=== PATIENT | male | born 1945 | race Caucasian/White ===

== ENCOUNTER 2024-02-10 13:17 | Inpatient (IN) | payer MEDICARE, SELFPAY ==
[2024-02-09] VITALS (10 sets, daily range): BP systolic 125–171; BP diastolic 66–86; BMI 27.1; BMI 26.0
[2024-02-09 11:11] LABS: % Basophils 0.4 % (0-2); % Eosinophils 1.6 % (0-6); % Immature Granulocytes 0.4 % (0-0.5); % Neutrophils 61.6 % (42.2-75.2); Absolute Eosinophils 0.2 10^3/uL (0-0.7); Absolute Lymphocytes 2.9 10^3/uL (1.2-3.4); Absolute Monocytes 0.7 10^3/uL (0.1-0.6); Absolute Neutrophils 6.2 10^3/uL (1.4-6.5); Hematocrit 42.4 % (39.0-52.0); Hemoglobin 14.7 g/dL (13.0-18.0); Mean Corp Hgb Conc. 34.7 g/dL (33.0-37.0); Mean Corpuscular Hgb 32.6 pg (27.0-31.0); Mean Platelet Volume 10.3 fL (7.4-10.4); Nucleated Red Blood Cells % 0 % (-); Platelet Count 229 10^3/uL (130-400); Red Blood Cell Count 4.51 10^6/uL (4.70-6.10); Red Cell Dist. Width 13.2 % (11.5-14.5); White Blood Cell Count 10.1 10^3/uL (4.8-10.8)
[2024-02-09 11:37] LABS: Troponin I < 0.012 ng/ml
[2024-02-09 11:40] LABS: ALT (SGPT) 24 U/L (0-50); AST (SGOT) 29 U/L (17-59); Albumin 4.5 g/dl (3.5-5.0); Alkaline Phosphatase 85 U/L (38-126); Blood Urea Nitrogen 28 mg/dl (9-20); Calcium 9.4 mg/dl (8.4-10.2); Carbon Dioxide 27 mmol/L (22-30); Chloride 104 mmol/L (98-107); Estimated Creatinine Clearance 29 ml/min; Glucose 159 mg/dl (70-99); Potassium 3.9 mmol/L (3.5-5.1); Sodium 140 mmol/L (135-145); Total Bilirubin 1.6 mg/dl (0.2-1.3); Total Protein 7.1 g/dl (6.3-8.2); eGFR 41.01
--- NOTE | 2024-02-09 12:37 | ED.CVA ---
History of Present Illness
General
Chief Complaint: CVA/TIA Symptoms
Source: patient and spouse
Exam Limitations: none
Time Seen by Provider: 02/09/24 11:33
Nursing documentation reviewed up to this point in time: agreed with
Onset of Stroke Symptoms
Onset of symptoms known: Yes
Date of onset of symptoms: 02/09/24
History of Present Illness
History of Present Illness:
78-year-old male with a past medical history of hypertension, hyperlipidemia, CKD who presents to the emergency department with his for evaluation after a speech disturbance. Patient reports onset of symptoms around 9:45 AM and they lasted for
about 10 minutes and have completely resolved. He reports that they had just returned from breakfast and he was sitting in his armchair. His says that he started to look at his hands and appeared to be confused. She says that he started
speaking 'gibberish'--she says that he was saying words but they did not make sense. She says that he did not seem to be slurring his speech. Apparently he got up to walk around and felt dizzy. EMS called to bring her to the hospital. Per EMS
his Accu-Chek was normal. Patient says that his symptoms have resolved and he now feels well� agrees that he appears to be at baseline. He says he never had any change in his vision. He says he did not have headache. He says he did not have
any weakness or numbness in his extremities. He has not had similar symptoms in the past. He denies any history of A-fib, is not on any blood thinners. He does have a history of blood pressure which is typically difficult to control he says--he
takes 3 medications for his blood pressure
Review of Systems
Review of Systems
All Other Systems: ROS reviewed and negative except as documented in HPI and ROS
Constitutional: Denies fever or chills
Respiratory: Denies trouble breathing
Cardiac: Denies chest pain
ABD/GI: Denies abdominal pain, nausea or vomiting
Neurological: Reports other (Speech disturbance); Denies dizzy, headache, weakness or numbness
Phy Exam
Physical Exam
Physical Exam:
General: Awake, alert, oriented x3; no acute distress
Head: Normocephalic, atraumatic
Eyes: Conjunctiva normal, EOMI, pupils equal round and reactive to light bilaterally, visual hays are intact
Throat: Airway intact, handling secretions
Neck: Trachea midline, supple without meningismus
Lungs: Clear to auscultation bilaterally, no wheezing, rales, rhonchi
Heart: Regular rate and rhythm, no murmurs, gallops, or rubs
Abd: Soft, non distended, nontender
Neuro: Cranial nerves intact 2 through 12, speech is fluid with no dysarthria or aphasia, no limb ataxia, motor and sensory function is intact proximally and distally upper and lower extremities
Skin: no rash
Extremities: No edema in extremities, equal pulses in all extremities
Scores
NIH Stroke Score
Level of Consciousness: 0 - Alert
LOC Questions: 0-Answers both correctly
LOC Commands: 0-Performs both correctly
Best Horizontal Gaze: 0-Normal
Visual Ahys: 0=Normal, no visual loss
Facial Palsy: 0=Normal, symmetrical
Motor - Right Arm: 0=No drift 10 seconds
Motor - Left Arm: 0=No drift 10 seconds
Motor - Right Le-No drift 5 seconds
Motor - Left Le-No drift 5 seconds
Limb Ataxia: 0-Absent
Sensation: 0-Normal
Best Language: 0-No aphasia
Dysarthria: 0-Normal
Extinction and Inattention: 0-No abnormality
Total Score:: 0
Heart Failure Risk
Heart Failure Risk Score: Not Applicable
Heart Score for Chest Pain Patients
STEMI patient?: Not applicable
Withdrawal Assessment of Alcohol
Withdrawal Assessment Completed?: Not applicable
Course
Orders/Labs/Results
Orders:
Orders
02/09/24 10:59
Electrocardiogram (*1) Urgent
Reason for Study: TIA/Stroke
02/09/24 11:00
EKG- Treatment ONCE
02/09/24 11:01
Complete Blood Count/With Diff Urgent
Comprehensive Metabolic Panel Urgent
Troponin I Urgent
02/09/24 11:44
CT Head W/o Iv Contrast Urgent
Comment:
Reason For Exam: dysarthria
02/09/24 11:56
NEUROLOGY CONSULT Urgent
Consulting Provider: Cayden Leos
Was physician already notified: Yes
Abnormal Lab Results
02/09/24
11:01
RBC 4.51 L 10^6/uL
(4.70-6.10)
MCH 32.6 H pg
(27.0-31.0)
Absolute Monos (auto) 0.7 H 10^3/uL
(0.1-0.6)
BUN 28 H mg/dl
(9-20)
Creatinine 1.7 H mg/dL
(0.7-1.3)
Glucose 159 H mg/dl
(70-99)
Total Bilirubin 1.6 H mg/dl
(0.2-1.3)
02/09/24 11:01
02/09/24 11:01
Vital Signs
Initial and Last Documented VS:
Initial Vital Signs
BP
149/68
02/09/24 10:58
Last Documented Vital Signs
Temp Pulse Resp BP Pulse Ox
36.8 C 77 21 137/76 97
02/09/24 11:03 02/09/24 11:15 02/09/24 11:15 02/09/24 11:03 02/09/24 11:17
MDM/Problems Addressed
Differential Diagnosis Includes:
TIA/CVA, seizure, complex migraine, polypharmacy
MDM/Problems Addressed:
78-year-old male presents for evaluation after an episode of speech disturbance that lasted about 10 minutes and has completely resolved. Normotensive on my assessment, rest of vitals normal as well. Physical exam is as above. With no current
physical complaints or deficits on exam, no stroke alert was called but will send for a CT head. Clinical concern is for TIA. Will check labs including a CBC and a CMP. Will check an EKG. Discussed case with neurology to evaluate. Reassess
after the above.
CT head negative for any acute pathology but does show multiple old infarcts. CBC unremarkable, CMP shows creatinine of 1.7�no baseline available for comparison. Neurology at bedside recommended admission to the hospital service will plan for
MRI/MRA. Case discussed with hospitalist for admission. Will dose with aspirin here.
Chronic conditions affecting care:
Hypertension, hyperlipidemia�higher risk for stroke
*Radiology
Radiology exam reviewed: radiology read reviewed
*Pulse Oximetry
Patient hypoxic: no
*EKG
Interpreted by ED Provider?: Yes
Heart Rate: 69
Rate: normal
Rhythm: sinus
Aspen: normal axis
Interval: normal interval
QRS Pattern: normal QRS
Ischemia: no ischemia
*Critical Care Note
Total Time (30-74mins, 75-104mins- exclusive of procedures): Not Applicable
Data Reviewed
Source: patient and spouse
Patient Management
Discussion with other providers: Hospitalist (Discussed with hospitalist) and Cavity Pump Operator (Discussed with neurology)
Escalation/DeEscalation of care consider admission/obs:
Admission indicated
ED Attending Note
-
Portions of this chart may have been created with voice recognition software.� Occasional wrong word or��sound alike� substitutions may have occurred due to the inherent limitations of voice recognition software.
Discharge Plan
Departure
Patient Disposition: Admit
Date of Disposition: 02/09/24
Time of Disposition: 12:43
Admit to doctor: Viji
Presentation/result/management discussed w/ accepting MD/DO: Hospitalist
Discharge Problem:
TIA (transient ischemic attack)
Prescriptions:
No Action
atorvastatin 40 mg Tablet
40 mg PO QPM
hydralazine 25 mg Tablet
25 mg PO QPM
Patient Comments:
02/09/2024, prescribed for pt. to take 1 tab TID but pt. takes 1 tab QPM per pt.; last filled on 08/19/2023 for a 90-day supply.
amlodipine 10 mg Tablet
10 mg PO QPM
omeprazole 20 mg Capsule,Delayed Release(Dr/Ec)
20 mg PO NOON
hydrochlorothiazide 25 mg Tablet
25 mg PO NOON
lisinopril 40 mg Tablet
40 mg PO QPM
atenolol 50 mg Tablet
50 mg PO QPM
Referrals:
Jaiden Barton MD [Family Provider] -
Interventions
Interventions:
*Risk Screen - Suicide Last Done: 02/09/24 11:10
*General Assessment Last Done: 02/09/24 11:06
*Neglect/Abuse Screening Last Done: 02/09/24 11:10
ED- Fall Risk Assessment Last Done: 02/09/24 11:10
*ED COVID-19 Vaccine History Last Done: 02/09/24 11:06
ED- Pulmonary Assessment Last Done: 02/09/24 11:17
ED- Neurological Assessment Last Done: 02/09/24 11:11
ED- Cardiac Assessment Last Done: 02/09/24 11:17
ED Swallowing Screen Last Done: 02/09/24 11:17
Discharge Date and Time
Print Language: [place]
[2024-02-09] MEDS: ASPIRIN 325 MG PO (12:49)
--- NOTE | 2024-02-09 12:56 | HPS.HSE ---
Addendum entered and electronically signed by Alex Gonzalez MD 02/09/24 14:31:
Elevated creatinine, suspect CKD
Bladder scan as needed, continue to monitor
Ua
Addendum entered and electronically signed by Alex Gonzalez MD 02/09/24 14:09:
I saw and examined the patient.
The OCEANOGRAPHER GEOLOGICAL or PA's note was reviewed and I agree with the note.
Comment: 78-year-old male with history of hypertension, hyperlipidemia, GERD came to the hospital with dysarthria and aphasia. Witnessed this morning by spouse. Patient reports compliant with all his medications. Denies any chest pain, shortness
of breath. Denies any headache. CT with multiple old lacunar infarcts. Patient family not aware of any previous stroke. Check MRI/MRA. Check echo. Neurology consulted. Per neurology treat blood pressure if higher than 150/90. Will hold p.o.
BP meds at this time. Hydralazine as needed. Speech, PT/OT. Check lipid profile, A1c. Full dose aspirin given. Start baby aspirin starting tomorrow. echo. monitor on tele
General: Well Developed, Well Nourished and No Apparent Distress
HEENT: NormoCephalic, Moist mucous membranes and Atraumatic
Respiratory: Clear
Cardiac: S1/S2 and Regular Rhythm; No Murmur or Rub
GI: Soft, Non Tender, Non Distended and Normal Bowel Sounds; No Organomegaly
Rectal: Deferred by Provider
Musculoskeletal: No Clubbing, No Cyanosis and No Edema
Skin: No Rash
Neuro: Nonfocal/grossly intact
I spent a total of 76 minutes with the patient or on the floor. More than 50% of this time involved counseling and coordination of care.
Original Note:
Family Physician
-
Family Physician: Jaiden Barton
Chief Complaint
-
Confusion
History of Present Illness
78-year-old male with a past medical history of hypertension, hyperlipidemia, CKD who presents to the emergency department with his for difficulty finding words after having breakfast. he was not making sense to his . he seemed confused.
His says that he started to look at his hands and appeared to be confused. Apparently he got up to walk around and felt dizzy. EMS called to bring her to the hospital. denied RHOADES or syncopal episode. denied fever, chills, chest pain, sob.
denied abdominal pain, n,v,d. denied dysuria or hematuria.
#CT head with no acute findings. old lacunar infracts.
Medical History
Past Medical History
Past Medical History: Reports Other
Additional Past Medical History:
Hypertension
Hyperlipidemia
GERD
Past Surgical History: Reports None
Additional Past Surgical History:
hernia repair
Social History
Tobacco: Other (occasional cigars)
Alcohol: Daily (2 beers daily)
Personal:
Living: With Family
Employment: Retired
Family History
Family History: Not pertinent
Allergies / Home Medications
Allergies reflects when Allergies were last updated in [employer].
Home Medications with original date entered in [employer]
Allergy/Medication List:
Allergies
Allergy/AdvReac Type Severity Reaction Status Date / Time
No Known Allergies Allergy Unverified 02/09/24 10:58
Home Medications
amlodipine 10 mg tablet 10 mg PO QPM 02/09/24
atenolol 50 mg tablet 50 mg PO QPM 02/09/24
atorvastatin 40 mg tablet 40 mg PO QPM 02/09/24
hydralazine 25 mg tablet 25 mg PO QPM 02/09/24
hydrochlorothiazide 25 mg tablet 25 mg PO NOON 02/09/24
lisinopril 40 mg tablet 40 mg PO QPM 02/09/24
omeprazole 20 mg capsule,delayed release 20 mg PO NOON 02/09/24
Review of Systems
-
Constitutional: Reports No Symptoms
EENT: Reports No Symptoms
Respiratory: Reports No Symptoms
Cardiac: Reports No Symptoms
Abdomen/GI: Reports No Symptoms
: Reports No Symptoms
Musculoskeletal: Reports No Symptoms
Skin: Reports No Symptoms
Neurological: Reports Other (finding words, confusion)
Endocrine: Reports No Symptoms
Hematologic/Lymphatic: Reports No Symptoms
Psych: Reports No Symptoms
Physical Exam
Vital Signs
Vital Signs
Temp Pulse Resp BP Pulse Ox
98.2 F 65 30 137/76 95
02/09/24 11:03 02/09/24 12:51 02/09/24 12:51 02/09/24 11:03 02/09/24 12:51
Physical Exam
General: Well Developed, Well Nourished and No Apparent Distress
HEENT: NormoCephalic, Moist mucous membranes and Atraumatic
Respiratory: Clear
Cardiac: S1/S2 and Regular Rhythm; No Murmur or Rub
GI: Soft, Non Tender, Non Distended and Normal Bowel Sounds; No Organomegaly
Rectal: Deferred by Provider
Musculoskeletal: No Clubbing, No Cyanosis and No Edema
Skin: No Rash
Neuro: Nonfocal/grossly intact
Laboratory Results
-
02/09/24 11:01
02/09/24 11:01
Laboratory Results
Total Bilirubin 1.6 mg/dl (0.2-1.3) H 02/09/24 11:01
AST 29 U/L (17-59) 02/09/24 11:01
ALT 24 U/L (0-50) 02/09/24 11:01
Alkaline Phosphatase 85 U/L (38-126) 02/09/24 11:01
Troponin I < 0.012 ng/ml 02/09/24 11:01
Data Reviewed
-
CT Scan: Report Reviewed by me
Lab Data: Labs Reviewed by me
Impression/Plan
-
# Expressive aphasia rule out acute CVA
-CT head There are no acute intracranial abnormalities.There is old 1.5 cm lacunar infarct involving the head of the caudate, anterior limb of the internal capsule and anterior aspect of the lentiform nucleus on the left There is 3 cm left lateral
parietal infarct with encephalomalacia. There is old 2 cm left parietal occipital infarct with encephalomalacia
-EKG with noted normal sinus rhythm with sinus arrhythmia
-Aspirin, statin
-Obtain MRI/MRA
-PT/OT consult
-obtain a1c,lipid profile
-obtain ECHO
-Neurology consult
#CKD likely from HTN
-Creatinine 1.7
-trend cr
# Essential hypertension
-hold Norvasc, atenolol, hydralazine, hctz
-allower permissive htn goal [id number][ 90
-hydralazine 5mg prn for if SBP>155,DBP>95
# GERD
-PPI continued
# DVT prophylaxis
-SCD
# CODE STATUS
-Full code
[2024-02-09] MEDS: APRESOLINE 5 MG IV ×2 (13:44→20:36)
--- NOTE | 2024-02-09 14:09 | W.PN.UPDATE ---
Update Note
Progress Note Update
For billing purposes only
--- NOTE | 2024-02-09 15:59 | CON.NEURO4 ---
Consultation - Neurology 4
-
CONSULTING PHYSICIAN: Cayden Leos MD
REFERRING PHYSICIAN: Hospitalist
DICTATED BY:
DATE/TIME OF REQUEST: February 09, 2024
DATE/TIME OF CONSULTATION: February 09, 2020 1000 AM
Reason for Consultation: Speech impediment
History of Present Illness:
This is a 78 year old right handed male who has presented to the hospital with chief complaint speech impediment. He gives a past medical history of hypertension, hyperlipidemia, CKD who presents to the emergency department for word finding
difficulty. As per his he was in his usual state of health upon waking up. He went out for breakfast. Upon returning home he was confused and disoriented and his speech was slurred
he was not making sense to his . He kept on grasping his hands and mumbling. Apparently he got up to walk around and felt dizzy. His called EMS who brought him to the emergency room. On arrival he was asymptomatic and had no speech
deficits. He has no motor or sensory deficits either . He denies headache dizziness double vision blurring of vision tingling numbness of the face or extremities
No loss conscious no seizures . No history of falls or head injuries
He is not on antiplatelet medications at home. He has not taken his blood pressure medications this morning
Past Medical History: Hypertension
Surgical History: Hernia repair
Family History: Noncontributory
Social History: lives at home with his smokes cigars
Allergies: No known drug allergies
Home Medications: Norvasc 10 mg atenolol 50 mg Lipitor 40 mg hydralazine 25 mg hydrochlorothiazide 25 mg lisinopril 40 mg and Prozac 20 mg
Review of Symptoms:
Patient denies any fever, headache, chest pain, shortness of breath, GI or symptoms.
�Per the HPI.�All systems are reviewed negative except above.
�
Vital Signs:
The patient has a blood pressure of ( ) , heart rate ( ) , temperature ( ) , respiratory rate ( ) and a pulse ox of ( ) on
(room air / oxygen by nasal cannula / ventilator).
Physical Exam:
The patient is afebrile, heart sounds S1 and S2 are (regular / irregular), and chest is clear to auscultation bilaterally.
NIH Stroke Scale (if applicable):0
Neurologic Examination:
The patient is awake, alert and oriented x 3. (He/She) is able to follow commands and answer questions appropriately. There is no aphasia or dysarthria. On cranial nerve assessment, pupils are 3 mm bilateral, round and reactive to light and
accommodation. Visual hays are full. Extraocular movements are intact. Facial sensations are intact and bilaterally symmetrical, there is no facial asymmetry. Hearing is intact bilaterally to normal conversation volume. Tongue palate and uvula
are midline. Sternocleidomastoid strengths are full bilaterally. Motor strengths are 5/5 bilateral upper and lower extremities on medical research Lime scale. There is no drift or involuntary movement noted. Deep tendon reflexes are 2+ bilateral
upper and lower extremities and Babinski is absent bilaterally. Sensations of pain, touch, temperature and vibration are intact and bilaterally symmetrical. There was no extinction noted on double simultaneous stimulation. Coordination is intact by
finger to nose bilaterally.
Lab Results:
Neuro Imaging: CT head
1). There are no acute intracranial abnormalities
2).There is old 1.5 cm lacunar infarct involving the head of the caudate, anterior limb of the internal capsule and anterior aspect of the lentiform nucleus on the left
3). There is 3 cm left lateral HEATING AND VENTILATION ENGINEER lacunar infarct with encephalomalacia
4). There is old 2 cm left parietal occipital infarct with encephalomalacia
Impression:
Mr. KATHRYN SOW is a 78 year old M who has presented to the hospital with complaints of aphasia prior to admission.
Recommendations:
1. Ecasa 325 mg once followed by aspirin 81 mg
2. Permissive HTN
3. Speech therapy
4. MRI/MRA head
5. Lipitor 40mg
Discussed patient care with:
Total Time Spent with Patient (in minutes): 30
Vital Signs and Labs
-
Vital Signs and Labs:
Vital Signs
Temp Pulse Resp BP Pulse Ox
36.7 C 66 18 168/81 100
02/09/24 15:45 02/09/24 15:45 02/09/24 15:45 02/09/24 15:45 02/09/24 15:45
Lab Results
02/09/24 11:01
02/09/24 11:01
Sodium 140 mmol/L (135-145) 02/09/24 11:01
Potassium 3.9 mmol/L (3.5-5.1) 02/09/24 11:01
BUN 28 mg/dl (9-20) H 02/09/24 11:01
Glucose 159 mg/dl (70-99) H 02/09/24 11:01
Calcium 9.4 mg/dl (8.4-10.2) 02/09/24 11:01
[2024-02-09 16:04] LABS: Urine Albumin Negative (Neg - Trace); Urine Bilirubin Negative (Negative); Urine Character Clear (Clear); Urine Color Yellow; Urine Glucose Negative (Negative); Urine Ketone Negative (Negative); Urine Leukocyte Negative (Negative); Urine Nitrite Negative (Negative); Urine Occult Blood Negative (Negative); Urine Specific Gravity 1.005 (<1.030); Urine Urobilinogen Negative (Neg - 1+)
[2024-02-09] MEDS: LIPITOR 40 MG PO (17:45)
[2024-02-10 03:25] VITALS: BP 152/88
[2024-02-10 06:57] LABS: Hematocrit 41.6 % (39.0-52.0); Hemoglobin 14.4 g/dL (13.0-18.0); Mean Corp Hgb Conc. 34.6 g/dL (33.0-37.0); Mean Corpuscular Hgb 32.7 pg (27.0-31.0); Mean Corpuscular Volume 94.5 fL (80.0-94.0); Mean Platelet Volume 10.4 fL (7.4-10.4); Platelet Count 191 10^3/uL (130-400); Red Cell Dist. Width 13.2 % (11.5-14.5); White Blood Cell Count 8.8 10^3/uL (4.8-10.8)
[2024-02-10 07:24] LABS: Blood Urea Nitrogen 22 mg/dl (9-20); Calcium 9.3 mg/dl (8.4-10.2); Carbon Dioxide 25 mmol/L (22-30); Chloride 109 mmol/L (98-107); Estimated Creatinine Clearance 38 ml/min; Glucose 109 mg/dl (70-99); HDL Cholesterol 36 mg/dl; LDL Cholesterol, Calculated 77 mg/dl; Potassium 4.1 mmol/L (3.5-5.1); Sodium 141 mmol/L (135-145); Total Cholesterol 132 mg/dl (50-199); Triglyceride 99 mg/dl (10-149); Very Low Density Lipoprotein 19 mg/dl (0-30); eGFR 56.58
[2024-02-10 07:45] VITALS: BP 146/84
[2024-02-10] MEDS: LOW STRENGTH ASPIRIN 81 MG PO (08:19)
--- NOTE | 2024-02-10 10:26 | W.PN.HOSP.TC ---
Addendum entered and electronically signed by Alex Gonzalez MD 02/10/24 16:08:
Needs better blood pressure control. Will hold HCTZ, hydralazine. Make amlodipine in the morning. Continue atenolol, lisinopril. Unsure why he needs 5 meds. Per patient and spouse, patient has been changing his medication times on his own.
Advised him to see vacuum bottle assembler for BP if BP meds is not controlled.
Addendum entered and electronically signed by Alex Gonzalez MD 02/10/24 10:37:
Per neurology, goal is now normotension. Restart home meds
Original Note:
Today's Communication/Plan
-
Monitor vital signs closely plan
PT/OT, speech
MRI/MRA
Echo
Neurology following
Goal blood pressure normotension then will restart some of the home medications
Assessment / Plan
Assessment / Plan
General: Well Developed, Well Nourished and No Apparent Distress
HEENT: NormoCephalic, Moist mucous membranes and Atraumatic
Respiratory: Clear
Cardiac: S1/S2 and Regular Rhythm; No Murmur or Rub
GI: Soft, Non Tender, Non Distended and Normal Bowel Sounds; No Organomegaly
Rectal: Deferred by Provider
Musculoskeletal: No Clubbing, No Cyanosis and No Edema
Skin: No Rash
Neuro: Nonfocal/grossly intact
Expressive aphasia rule out acute CVA
-CT head There are no acute intracranial abnormalities.There is old 1.5 cm lacunar infarct involving the head of the caudate, anterior limb of the internal capsule and anterior aspect of the lentiform nucleus on the left There is 3 cm left lateral
parietal infarct with encephalomalacia. There is old 2 cm left parietal occipital infarct with encephalomalacia
-EKG with noted normal sinus rhythm with sinus arrhythmia
-Aspirin, statin
-Obtain MRI/MRA
-PT/OT consult
-obtain a1c pending, LDL 77
Echo noted
-Neurology follow
Monitor on telemetry
# Renal insufficiency, suspect CKD likely from HTN
Continue to monitor creatinine, 1.3 today. On admission was 1.7
# Essential hypertension
-hold Norvasc, atenolol, hydralazine, hctz
-allow permissive htn until wants by neurology; if goal normotension today then will restart home meds slowly
# GERD
-PPI continued
# DVT prophylaxis
-SCD;heparin
# CODE STATUS
-Full code
Anticipated Discharge: Within 24 hours
Subjective/Interval History
-
Date of Service: February 10, 2024
denies pain
Objective Data
-
Labs:
Laboratory Results
02/10/24
06:26
WBC 8.8
Hgb 14.4
Hct 41.6
Plt Count 191
Sodium 141
Potassium 4.1
Chloride 109 H
Carbon Dioxide 25
BUN 22 H
Creatinine 1.3
Glucose 109 H
Calcium 9.3
Vital Signs:
Vital Signs
Temp Pulse Resp BP Pulse Ox
98.2 F 65 14 146/84 96
02/10/24 07:45 02/10/24 07:45 02/10/24 07:45 02/10/24 07:45 02/10/24 07:45
I&O
02/09/24 02/10/24 02/11/24
06:59 06:59 06:59
Intake Total 720 / 720
Output Total 200 / 200
Balance 520 / 520
[2024-02-10 10:54] LABS: Glycohemoglobin (HgbA1c) 6.1 % (4.0-5.6)
--- NOTE | 2024-02-10 11:17 | W.PN.NEURO.1 ---
Documented by User: Iris Lopez NP 02/10/24 11:48
Today's Communication / Plan
-
.
Neuro Assessment/Plan
Assessment
This is a 78-year-old male who presented to on 02/09/24 with report of transient speech difficulty, dizziness, and left hand heaviness lasting [address] head was negative for any acute abnormalities but demonstrates old ischemic infarcts in
the left caudate nucleus, left parietal lobe, and left parietal/occipital lobe that the patient was unaware of. He was not a candidate for TNK/IAT due to NIHSS 0, resolution of symptoms. Patient was not previously taking any antiplatelet medication,
he was loaded with aspirin in the ER.
-CT head 02/09/24: There are no acute intracranial abnormalities. There is old 1.5 cm lacunar infarct involving the head of the caudate, anterior limb of the internal capsule and anterior aspect of the lentiform nucleus on the left. There is 3 cm
left lateral parietal infarct with encephalomalacia. There is old 2 cm left parietal occipital infarct with encephalomalacia.
I. TIA likely producing transient speech difficulty, dizziness, and left hand heaviness.
II. Multiple old ischemic infarcts demonstrated on CT head imaging.
Plan
-Continue aspirin 81mg daily indefinitely.
-Permissive hypertension SBP<220, DBP<120 until 1200 today, then goal normotension.
-MRI brain noncontrast, MRA head/neck pending.
-Monitor on telemetry. Consider outpatient cardiac monitoring.
-LDL goal <70. LDL is 77. Increase home atorvastatin 40mg to 80mg daily given multiple old ischemic infarcts.
-Goal normoglycemia, hbA1c is 6.1.
-NIHSS and neurological checks per unit guidelines.
-Provide patient with a stroke education packet.
-DVT prophylaxis.
-Will follow pending results.
Subjective/Objective
Subjective Data
Date of Service: February 10, 2024
No acute events overnight. Patient denies any further speech difficulty, left hand heaviness, and dizziness. He denies any headache, vision changes, swallowing difficulty, numbness, focal weakness, nausea, chest pain, palpitations, and shortness of
breath.
Objective Data
Vital Signs
Temp Pulse Resp BP Pulse Ox
98.2 F 65 14 146/84 96
02/10/24 07:45 02/10/24 07:45 02/10/24 07:45 02/10/24 07:45 02/10/24 07:45
Lab Results
02/10/24 06:26
02/10/24 06:26
Sodium 141 mmol/L (135-145) 02/10/24 06:26
Potassium 4.1 mmol/L (3.5-5.1) 02/10/24 06:26
BUN 22 mg/dl (9-20) H 02/10/24 06:26
Glucose 109 mg/dl (70-99) H 02/10/24 06:26
Calcium 9.3 mg/dl (8.4-10.2) 02/10/24 06:26
LDL Cholesterol, Calc 77 mg/dl 02/10/24 06:26
Patient Allergies
No Known Allergies Allergy (Unverified 02/09/24 10:58)
LDL Level: Statin dose adjusted
Review of Systems
-
History Source: Patient
EENT: Negative Blurry Vision, Decreased Vision or Swallowing Difficulty
Respiratory: Negative Cough or Trouble Breathing
Cardiac: Negative Chest Pain or Palpitations
Abdomen/GI: Negative Nausea
Neuro: Negative Dizzy, Headache, Weakness, Numbness, Ataxia, Tremors or Speech Problem
Physical Exam
-
General: Well Developed, Well Nourished and No Apparent Distress
Eyes: No Ptosis and PERRLA
HEENT: Normocephalic and Atraumatic
Neck: Full Range of Motion
Respiratory: No Dyspnea
GI: Non-distended
Extremities: No Clubbing, No Cyanosis and No Edema
Psych: Unremarkable
Extended Neurological Exam
Mood & Affect: Mood Unremarkable and Affect Unremarkable
Attention Span & Concentration: Awake, Alert and Interactive
Memory: Able to Recall and Reduced (Oriented to person, place, and month not year)
Tremor: Hand Tremor Absent and Head Tremor Absent
Speech: Quality Unremarkable, Quantity Unremarkable and Rate of Production Unremarkable
Cranial Nerve II: Left Eye: Pupillary Reactivity Unremarkable, Pupillary Size Unremarkable and Visual Giron Intact
Cranial Nerve II: Right Eye: Pupillary Reactivity Unremarkable, Pupillary Size Unremarkable and Visual Giron Intact
Cranial Nerves III, IV, : Extraocular Movement: Extraocular Movement Full in all Directions
Cranial Nerve V: Facial Sensation: Intact to Light Touch
Cranial Nerve VII: Facial Symmetry: Normal Facial Symmetry
Cranial Nerve VIII: Hearing: Unremarkable Hearing to Normal Conversational Volume
Cranial Nerves IX, X: Palate Movement: Palate Elevation Symmetric
Cranial Nerve XI: Shoulder Shrug: Unremarkable
Cranial Nerve XII: Tongue Protusion: Midline
Muscle Strength, Overall: Full Throughout
Muscle Bulk & Tone: Bulk Unremarkable and Tone Unremarkable
Pronator Drift: No Drift in Upper Extremities and No Drift in Lower Extremities
Deep Tendon Reflexes: Unremarkable Throughout
Cold Sensation: Unremarkable
Vibration Sensation: Unremarkable
Touch Sensation: Double Simultaneous Stimulation Unremarkable
Coordination: Kuhlno-[id number]-[id number] Testing Unremarkable
Babinski Sign: Absent Bilaterally
Gait & Station: Up from Seated Without Problem
Modified [place] Score (MRS)
-
Modified [place] Scale (mRS): No symptoms
Score: 0
Data Reviewed
-
CT Head: Report Reviewed and Image Reviewed
MRI Head: Pending
MRA Head: Pending
MRA Neck: Pending
Labs: Report Reviewed
Lipid Profile: Report Reviewed
HgbA1C: Report Reviewed
Reviewed with: Physician and Patient
Medications
-
Active Medications
Generic Name Dose Route Start Last Admin
Trade Name Freq PRN Reason Stop Dose Admin
Acetaminophen 650 mg 02/09/24 15:52
Acetaminophen 650 Mg Rectal Suppository RECTAL 03/08/24 15:51
Q4HPRN PRN
RHOADES, mild pain, or temp >100.4F
Acetaminophen 650 mg 02/09/24 15:52
Acetaminophen 325 Mg Tablet PO 03/08/24 15:51
Q4HPRN PRN
RHOADES, mild pain, or temp >100.4F
Amlodipine Besylate 10 mg 02/10/24 18:00
Amlodipine 10 Mg Tablet PO 03/09/24 17:59
QPM SOLEDAD
Aspirin 81 mg 02/10/24 08:00 02/10/24 08:19
Aspirin 81 Mg Chewable Tablet PO 03/09/24 07:59 81 mg
DAILY SOLEDAD Administration
Atenolol 50 mg 02/10/24 18:00
Atenolol 50 Mg Tablet PO 03/09/24 17:59
QPM SOLEDAD
Atorvastatin Calcium 40 mg 02/09/24 18:00 02/09/24 17:45
Atorvastatin (Lipitor) 40 Mg Tablet PO 03/08/24 17:59 40 mg
QPM SOLEDAD Administration
Heparin Sodium 5,000 units 02/10/24 20:00
Heparin 5,000 Units/Ml 1 Ml Vial SC 03/09/24 19:59
Q12 SOLEDAD
Hydralazine HCl 5 mg 02/09/24 15:52 02/09/24 20:36
Hydralazine 20 Mg/Ml Vial IV 03/08/24 15:51 5 mg
Q6HPRN PRN Administration
hypertension
Hydrochlorothiazide 25 mg 02/10/24 12:00 02/10/24 11:27
Hydrochlorothiazide 25 Mg Tablet PO 03/09/24 11:59 25 mg
NOON SOLEDAD Administration
Lisinopril 40 mg 02/10/24 18:00
Lisinopril 20 Mg Tablet PO 03/09/24 17:59
QPM SOLEDAD
Pantoprazole Sodium 40 mg 02/10/24 12:00 02/10/24 11:24
Pantoprazole 40 Mg Delayed Release Tablet PO 03/09/24 11:59 40 mg
NOON SOLEDAD Administration
Sodium Chloride 0 flush 02/09/24 17:00
Sodium Chloride 0.9% (Flush) Syringe IV 03/08/24 16:59
PER PROTOCOL SOLEDAD
Home Medications
�Medication �Instructions �Recorded
amlodipine 10 mg tablet 10 mg PO QPM 02/09/24
atenolol 50 mg tablet 50 mg PO QPM 02/09/24
atorvastatin 40 mg tablet 40 mg PO QPM 02/09/24
hydralazine 25 mg tablet 25 mg PO QPM 02/09/24
hydrochlorothiazide 25 mg tablet 25 mg PO NOON 02/09/24
lisinopril 40 mg tablet 40 mg PO QPM 02/09/24
omeprazole 20 mg capsule,delayed 20 mg PO NOON 02/09/24
release
NIH Stroke Score
Subsequent NIH Scale
Date of Subsequent NIH Scale: 02/10/24
Time of Subsequent NIH Scale: 09:30
NIH Stroke Score
Level of Consciousness: 0 - Alert
LOC Questions: 0-Answers both correctly
LOC Commands: 0-Performs both correctly
Best Horizontal Gaze: 0-Normal
Visual Giron: 0=Normal, no visual loss
Facial Palsy: 0=Normal, symmetrical
Motor - Right Arm: 0=No drift 10 seconds
Motor - Left Arm: 0=No drift 10 seconds
Motor - Right Le-No drift 5 seconds
Motor - Left Le-No drift 5 seconds
Limb Ataxia: 0-Absent
Sensation: 0-Normal
Best Language: 0-No aphasia
Dysarthria: 0-Normal
Extinction and Inattention: 0-No abnormality
Total Score:: 0
Modified [place] (mRS) Score
Modified Danisha Scale (mRS): No symptoms
Score: 0
Alteplase Contraindication
Inclusion and Exclusion criteria reviewed: Yes

Documented by User: Cayden Leos MD 02/10/24 13:36
Modified [place] Score (MRS)
-
Score: 0
NIH Stroke Score
NIH Stroke Score
Total Score:: 0
Modified [place] (mRS) Score
Score: 0
--- NOTE | 2024-02-10 11:22 | CM ---
Reviewed the chart notes and spoke with the patient at the bedside. The patient is being admitted under observational status. The RICHARDSON letter was provided and explained. The patient had no questions with regards to the letter.
The patient resides with his spouse in a two story home with no steps to enter. The patient reports no DME/VN/SNF in the past. The patient confirmed his pharmacy of choice is the [facility]. continues to be available to
patient/family and is monitoring medical plan for needs at discharge.
Plan: Discharge to home when medically stable. No additional needs anticipated.
[2024-02-10] MEDS: PROTONIX 40 MG PO (11:24)
[2024-02-10] MEDS: ORETIC 25 MG PO (11:27)
[2024-02-10 11:33] VITALS: BP 147/60
--- NOTE | 2024-02-10 12:57 | PTOTSP ---
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
Quick Aphasia Battery Form 1 score= 8.72 concern for mild language changes (i.e., auditory comprehension for linguistically complex yes/no questions; see patient care note for other areas). Patient feels he is at baseline at this time.
Conversation level speech/comprehension functional. Consider higher level cognitive linguistic testing pending results of MRI of Brain.
--- NOTE | 2024-02-10 13:22 | W.PN.NEURO.1 ---
Today's Communication / Plan
-
MRI of the head shows acute left parietal lobe infarct that has hemorrhagic component. Mid chronic infarcts in the left posterior frontal parietal lobe and medial left occipital lobe there is also encephalomalacia in the left anterior basal ganglia
with extensive white matter changes and atrophy
Sagittal view of the head and P spine shows C4-C5 disc herniation with cord compression
I have ordered CT head urgently and MRI of the C-spine to validate above findings
Neuro Assessment/Plan
Assessment
This is a 78-year-old male who presented to on 02/09/24 with report of transient speech difficulty, dizziness, and left hand heaviness lasting [address] head was negative for any acute abnormalities but demonstrates old ischemic infarcts in
the left caudate nucleus, left parietal lobe, and left parietal/occipital lobe that the patient was unaware of. He was not a candidate for TNK/IAT due to NIHSS 0, resolution of symptoms. Patient was not previously taking any antiplatelet medication,
he was loaded with aspirin in the ER.
-CT head 02/09/24: There are no acute intracranial abnormalities. There is old 1.5 cm lacunar infarct involving the head of the caudate, anterior limb of the internal capsule and anterior aspect of the lentiform nucleus on the left. There is 3 cm
left lateral parietal infarct with encephalomalacia. There is old 2 cm left parietal occipital infarct with encephalomalacia.
I. TIA likely producing transient speech difficulty, dizziness, and left hand heaviness.
II. Multiple old ischemic infarcts demonstrated on CT head imaging.
Plan
-Continue aspirin 81mg daily indefinitely.
-Permissive hypertension SBP<220, DBP<120 until 1200 today, then goal normotension.
-MRI brain noncontrast, MRA head/neck pending.
-Monitor on telemetry. Consider outpatient cardiac monitoring.
-LDL goal <70. LDL is 77. Increase home atorvastatin 40mg to 80mg daily given multiple old ischemic infarcts.
-Goal normoglycemia, hbA1c is 6.1.
-NIHSS and neurological checks per unit guidelines.
-Provide patient with a stroke education packet.
-DVT prophylaxis.
-Will follow pending results.
Subjective/Objective
Subjective Data
Date of Service: February 10, 2024
Pat doing well. No new motor or sensory issues still continues to have word finding issues intermittently.
Objective Data
Vital Signs
Temp Pulse Resp BP Pulse Ox
36.7 C 57 16 147/60 96
02/10/24 11:33 02/10/24 11:33 02/10/24 11:33 02/10/24 11:33 02/10/24 11:54
Lab Results
02/10/24 06:26
02/10/24 06:26
Sodium 141 mmol/L (135-145) 02/10/24 06:26
Potassium 4.1 mmol/L (3.5-5.1) 02/10/24 06:26
BUN 22 mg/dl (9-20) H 02/10/24 06:26
Glucose 109 mg/dl (70-99) H 02/10/24 06:26
Calcium 9.3 mg/dl (8.4-10.2) 02/10/24 06:26
LDL Cholesterol, Calc 77 mg/dl 02/10/24 06:26
Patient Allergies
No Known Allergies Allergy (Unverified 02/09/24 10:58)
Review of Systems
-
History Source: Patient
All other systems: Reviewed and negative
Constitutional: No Symptoms
EENT: No Symptoms Reported
Respiratory: No Symptoms
Cardiac: No Symptoms
Abdomen/GI: No Symptoms
Genitourinary: No Symptoms
Musculoskeletal: No Symptoms
Skin: No Symptoms
Neuro: No Symptoms
Endocrine: No Symptoms
Hematologic / Lymphatic: No Symptoms
Allergy / Immunology: No Symptoms
Physical Exam
-
General: Well Developed
Eyes: Unremarkable
HEENT: Normocephalic and Atraumatic
Neck: No Bruits Bilaterally
Respiratory: Clear to Auscultation
Cardiac: Regular Rhythm and No Murmur
GI: Normal Bowel Sounds
Skin: Unremarkable
Extremities: No Clubbing
Psych: Unremarkable
Extended Neurological Exam
Mood & Affect: Mood Unremarkable
Attention Span & Concentration: Awake and Alert
Memory: Unremarkable
Tremor: Hand Tremor Absent and Head Tremor Absent
Involuntary Movement: None
Speech: Quality Unremarkable, Quantity Unremarkable and Rate of Production Unremarkable
Cranial Nerve II: Left Eye: Pupillary Reactivity Unremarkable and Pupillary Size Unremarkable
Cranial Nerve II: Right Eye: Pupillary Reactivity Unremarkable and Pupillary Size Unremarkable
Cranial Nerves III, IV, : Extraocular Movement: Extraocular Movement Full in all Directions
Cranial Nerve V: Facial Sensation: Intact to Pin Prick and Intact to Light Touch
Cranial Nerve VII: Facial Symmetry: Normal Facial Symmetry
Cranial Nerve VIII: Hearing: Unremarkable Hearing to Normal Conversational Volume
Cranial Nerve XI: Shoulder Shrug: Unremarkable
Cranial Nerve XII: Tongue Protusion: Midline
Muscle Strength, Overall: Full Throughout
Muscle Bulk & Tone: Bulk Unremarkable
Pronator Drift: No Drift in Upper Extremities
Deep Tendon Reflexes: Unremarkable Throughout
Cold Sensation: Unremarkable
Vibration Sensation: Unremarkable
Touch Sensation: Unremarkable
Coordination: [id number]-uyaf-aqqnpg Testing Unremarkable
Babinski Sign: Absent Bilaterally
Gait & Station: Unremarkable Arm Swing and Up from Seated Without Problem
Modified [place] Score (MRS)
-
Modified Danisha Scale (mRS): No significant disability. Able to carry out usual activities.
Score: 1
Data Reviewed
-
CT Head: Ordered
MRI Head: Report Reviewed
MRI Cervical Spine: Ordered
Reviewed with: Physician
Total Time Spent with Patient (in minutes): 30
--- NOTE | 2024-02-10 13:48 | W.PN.UPDATE ---
Addendum entered and electronically signed by Alex Gonzalez MD 02/10/24 16:03:
Patient and spouse aware of non hemorrhagic findings on CT scan
Addendum entered and electronically signed by Alex Gonzalez MD 02/10/24 15:41:
Ct scan without hemorrhage. Confirmed with neurology; CT is more sensitive so this doesn't appear to be hemorrhagic CVA. Neurology is ok to cancel tomorrow afternoon CT and ok with continuing aspirin, MRI cspine pending.
Original Note:
Update Note
Progress Note Update
Discussed MRI findings with neurology showing acute hemorrhagic stroke. patient and spouse updated by me regarding CVA. Per neurology will do urgent CT scan now and tomorrow around noon. Hold aspirin for 24 to [address] scan negative
then likely can resume aspirin.
I spent a total of 52 minutes with the patient or on the floor. More than 50% of this time involved counseling and coordination of care.
[2024-02-10 15:40] VITALS: BP 141/86
[2024-02-10] MEDS: LIPITOR 80 MG PO (17:15)
[2024-02-10] MEDS: ZESTRIL 40 MG PO (17:15)
[2024-02-10] MEDS: TENORMIN 50 MG PO (17:15)
[2024-02-10 19:25] VITALS: BP 141/72
[2024-02-10 23:10] VITALS: BP 147/89
[2024-02-11] VITALS (7 sets, daily range): BP systolic 132–154; BP diastolic 74–87; PULSE 55
[2024-02-11] MEDS: ASPIR LOW (ENTERIC COATED) 81 MG PO (09:17)
[2024-02-11] MEDS: NORVASC 10 MG PO (09:17)
--- NOTE | 2024-02-11 09:59 | W.PN.HOSP.TC ---
Today's Communication/Plan
-
see A/P
Assessment / Plan
Assessment / Plan
MRI brain:
1. 2.4 cm ACUTE HEMORRHAGIC TRANSCORTICAL INFARCT in the posterior LEFT PARIETAL LOBE.
2. Moderate-sized chronic transcortical infarct in the more anterior left parietal lobe.
3. Small chronic transcortical infarct in the medial left occipital lobe.
4. 1.6 cm chronic hemorrhagic infarct or intraparenchymal hemorrhage with associated encephalomalacia in the anterior left basal ganglia.
5. Mild white matter leukoaraiosis in both frontal lobes.
6. Mild diffuse cerebral and cerebellar volume loss.
7. Large amount of fluid in the right mastoid air cells.
8. 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
MRA head:
1. Calcific atherosclerotic plaque throughout both the anterior and posterior intracranial circulations causing multivessel arterial stenoses.
2. 70% diameter stenosis in the proximal basilar artery.
3. 50% diameter stenosis in the mid basilar artery.
4. 70% diameter stenosis in the proximal P2 segment of the left posterior cerebral artery.
5. 50-70% diameter stenosis in the P1 segment of the right posterior cerebral artery.
6. 50-70% diameter stenosis in the clinoid segment of the right internal carotid artery.
7. 50-70% diameter stenosis in the cavernous segment of the left internal carotid artery.
MRA neck:
1. No MRA evidence for stenosis in either proximal internal carotid artery.
2. 50-70% diameter stenosis in the cavernous segment of the left internal carotid artery.
3. No MRA evidence for vertebral artery stenosis or occlusion.
4. Severe 70% diameter stenosis in the proximal basilar artery.
5. Severe greater than 70% diameter stenosis in the P2 segment of the left posterior cerebral artery.
A/P:
# Expressive aphasia likely due to acute stroke
CT head from admission: 1). There are no acute intracranial abnormalities. 2).There is old 1.5 cm lacunar infarct involving the head of the caudate, anterior limb of the internal capsule and anterior aspect of the lentiform nucleus on the left. 3).
There is 3 cm left lateral parietal infarct with encephalomalacia 4). There is old 2 cm left parietal occipital infarct with encephalomalacia
Follow up MRI brain noted 2.4 cm ACUTE HEMORRHAGIC TRANSCORTICAL INFARCT in the posterior LEFT PARIETAL LOBE
Repeat CT head noted the 2 cm subacute infarct in the posterior aspect of the left parietal lobe corresponding with the lesion seen on the MRI head. No associated hemorrhage is demonstrated by CT.
MRA brain and neck reports as above
Cont Aspirin indefinitely, Lipitor
PT/OT eval
A1C 6.1%
LDL 77
Echo noted: EF 65-70%. Normal diastolic function.
Monitor on telemetry
Neurology following
# Possible C4-C5 disc herniation with cord compression noted on MRI brain
Follow MRI cervical spine
# Renal insufficiency, suspect CKD stage 3 likely from HTN
SCr 1.7 on admission, then 1.3
# Essential hypertension
resumed GRAIN CLEANER Norvasc, atenolol, lisinopril
remain off of GRAIN CLEANER HCTZ and hydralazine
# GERD
PPI continued
DVT prophylaxis-SCD
CODE STATUS-Full code
Anticipated Discharge: Within 24 hours
Subjective/Interval History
-
Date of Service: February 11, 2024
Objective Data
-
Vital Signs:
Vital Signs
Temp Pulse Resp BP Pulse Ox
36.4 C 57 14 155/73 99
02/11/24 07:55 02/11/24 09:17 02/11/24 07:55 02/11/24 09:17 02/11/24 07:55
I&O
02/10/24 02/11/24 02/12/24
06:59 06:59 06:59
Intake Total 720 / 720 1440 / 1440
Output Total 200 / 200
Balance 520 / 520 1440 / 1440
Review of Systems
-
All other systems: Reviewed and negative
Neuro: Denies Dizzy, Headache, Weakness, Numbness or Ataxia
Physical Exam
-
General: Well Developed, Well Nourished, No Apparent Distress, Comfortable and Conversant; Negative Respiratory Distress
HEENT: Normocephalic, Atraumatic, Nose Appears Normal and Ears Appear Normal; Negative Oxygen
Respiratory: Clear to Auscultation and Non Labored Respirations; Negative Accessory Resp Muscle Use
Cardiac: Regular Rhythm and S1/S2
GI: Soft, Nontender, Nondistended and Normal Bowel Sounds
Skin: Warm and Dry
Neuro: Awake, Alert, Oriented and AO x 3
Psych: Calm and Intact Judgement/Insight
Data Reviewed
-
CT Scan: Report Reviewed by me
MRI: Report Reviewed by me
Labs: Labs Reviewed by me
[2024-02-11] MEDS: PROTONIX 40 MG PO (12:15)
[2024-02-11] MEDS: ZESTRIL 40 MG PO (17:04)
[2024-02-11] MEDS: LIPITOR 80 MG PO (17:05)
[2024-02-11] MEDS: TENORMIN 50 MG PO (17:05)
[2024-02-12 03:14] VITALS: BP 127/78
[2024-02-12 05:11] LABS: Hematocrit 40.7 % (39.0-52.0); Hemoglobin 14.1 g/dL (13.0-18.0); Mean Corp Hgb Conc. 34.6 g/dL (33.0-37.0); Mean Corpuscular Hgb 32.5 pg (27.0-31.0); Mean Corpuscular Volume 93.8 fL (80.0-94.0); Mean Platelet Volume 10.5 fL (7.4-10.4); Platelet Count 209 10^3/uL (130-400); Red Blood Cell Count 4.34 10^6/uL (4.70-6.10); Red Cell Dist. Width 13.2 % (11.5-14.5); White Blood Cell Count 9.6 10^3/uL (4.8-10.8)
[2024-02-12 05:32] LABS: Blood Urea Nitrogen 31 mg/dl (9-20); Calcium 9.3 mg/dl (8.4-10.2); Carbon Dioxide 27 mmol/L (22-30); Chloride 104 mmol/L (98-107); Estimated Creatinine Clearance 33 ml/min; Glucose 109 mg/dl (70-99); Magnesium 2.2 mg/dl (1.6-2.3); Potassium 4.3 mmol/L (3.5-5.1); Sodium 139 mmol/L (135-145); eGFR 47.65
[2024-02-12 07:40] VITALS: BP 161/84
[2024-02-12] MEDS: NORVASC 10 MG PO (08:21)
[2024-02-12] MEDS: ASPIR LOW (ENTERIC COATED) 81 MG PO (08:21)
[2024-02-12 08:45] VITALS: BP 139/77; PULSE 54; O2SAT 96
[2024-02-12 09:00] VITALS: BP 139/77
--- NOTE | 2024-02-12 10:48 | CM ---
Patient seen at bedside. Patient now INP status. Patient plan is to go home with no needs. CM will reach out to patient to confirm. CM will continue to follow for discharge planning needs.
Plan; home with no needs vs home with VN
--- NOTE | 2024-02-12 10:54 | W.PN.HOSP.TC ---
Addendum entered and electronically signed by Rosemary Cruz MD 02/12/24 13:36:
total DC time 35 min
Original Note:
Today's Communication/Plan
-
see A/P
Assessment / Plan
Assessment / Plan
MRI brain:
1. 2.4 cm ACUTE HEMORRHAGIC TRANSCORTICAL INFARCT in the posterior LEFT PARIETAL LOBE.
2. Moderate-sized chronic transcortical infarct in the more anterior left parietal lobe.
3. Small chronic transcortical infarct in the medial left occipital lobe.
4. 1.6 cm chronic hemorrhagic infarct or intraparenchymal hemorrhage with associated encephalomalacia in the anterior left basal ganglia.
5. Mild white matter leukoaraiosis in both frontal lobes.
6. Mild diffuse cerebral and cerebellar volume loss.
7. Large amount of fluid in the right mastoid air cells.
8. 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
MRA head:
1. Calcific atherosclerotic plaque throughout both the anterior and posterior intracranial circulations causing multivessel arterial stenoses.
2. 70% diameter stenosis in the proximal basilar artery.
3. 50% diameter stenosis in the mid basilar artery.
4. 70% diameter stenosis in the proximal P2 segment of the left posterior cerebral artery.
5. 50-70% diameter stenosis in the P1 segment of the right posterior cerebral artery.
6. 50-70% diameter stenosis in the clinoid segment of the right internal carotid artery.
7. 50-70% diameter stenosis in the cavernous segment of the left internal carotid artery.
MRA neck:
1. No MRA evidence for stenosis in either proximal internal carotid artery.
2. 50-70% diameter stenosis in the cavernous segment of the left internal carotid artery.
3. No MRA evidence for vertebral artery stenosis or occlusion.
4. Severe 70% diameter stenosis in the proximal basilar artery.
5. Severe greater than 70% diameter stenosis in the P2 segment of the left posterior cerebral artery.
A/P:
# Expressive aphasia likely due to acute stroke
CT head from admission: 1). There are no acute intracranial abnormalities. 2).There is old 1.5 cm lacunar infarct involving the head of the caudate, anterior limb of the internal capsule and anterior aspect of the lentiform nucleus on the left. 3).
There is 3 cm left lateral parietal infarct with encephalomalacia 4). There is old 2 cm left parietal occipital infarct with encephalomalacia
Follow up MRI brain noted 2.4 cm ACUTE HEMORRHAGIC TRANSCORTICAL INFARCT in the posterior LEFT PARIETAL LOBE
Repeat CT head noted the 2 cm subacute infarct in the posterior aspect of the left parietal lobe corresponding with the lesion seen on the MRI head. No associated hemorrhage is demonstrated by CT.
MRA brain and neck reports as above
Cont Aspirin indefinitely, Lipitor
PT/OT cleared for DC home, no skilled needed
A1C 6.1%
LDL 77
Echo noted: EF 65-70%. Normal diastolic function.
Monitor on telemetry
Neurology following
# Possible C4-C5 disc herniation with cord compression noted on MRI brain
MRI cervical spine confirmed C4-C5 disc herniation with cord compression
Given pt denies to symptoms such as neck pain etc. Neuro Surgery recc outpt eval
# suspect CKD stage 3 likely from HTN
SCr 1.7 -> 1.5 today
# Essential hypertension
resumed [employer] [employer] Norvasc, atenolol, lisinopril, hydralazine
off of [employer] HCTZ
# GERD
PPI continued
DVT prophylaxis-SCD
CODE STATUS-Full code
called to update, calls not answered
Anticipated Discharge: Today
Subjective/Interval History
-
Date of Service: February 12, 2024
Objective Data
-
Labs:
Laboratory Results
02/12/24
04:56
WBC 9.6
Hgb 14.1
Hct 40.7
Plt Count 209
Sodium 139
Potassium 4.3
Chloride 104
Carbon Dioxide 27
BUN 31 H
Creatinine 1.5 H
Glucose 109 H
Calcium 9.3
Vital Signs:
Vital Signs
Temp Pulse Resp BP Pulse Ox
37.1 C 62 16 161/84 98
02/12/24 07:40 02/12/24 08:21 02/12/24 07:40 02/12/24 08:21 02/12/24 07:40
I&O
02/11/24 02/12/24 02/13/24
06:59 06:59 06:59
Intake Total 1440 / 1440 1080 / 1080
Balance 1440 / 1440 1080 / 1080
Review of Systems
-
All other systems: Reviewed and negative
Neuro: Denies Dizzy, Headache, Weakness, Numbness or Ataxia
Physical Exam
-
General: Well Developed, Well Nourished, No Apparent Distress, Comfortable and Conversant; Negative Respiratory Distress
HEENT: Normocephalic, Atraumatic, Nose Appears Normal and Ears Appear Normal; Negative Oxygen
Respiratory: Clear to Auscultation and Non Labored Respirations; Negative Accessory Resp Muscle Use
Cardiac: Regular Rhythm and S1/S2
GI: Soft, Nontender, Nondistended and Normal Bowel Sounds
Skin: Warm and Dry
Neuro: Awake, Alert, Oriented and AO x 3
Psych: Calm and Intact Judgement/Insight
Data Reviewed
-
CT Scan: Report Reviewed by me
MRI: Report Reviewed by me, Discussed with Patient and Discussed with Family
Labs: Labs Reviewed by me
[2024-02-12 11:20] VITALS: BP 142/79
[2024-02-12] MEDS: PROTONIX 40 MG PO (12:10)
--- NOTE | 2024-02-12 13:25 | W.DCSUMMARY ---
Discharge Summary
Discharge Data
Date of Admission: 02/10/24
Date of Discharge: 02/12/24
-
Pending Results: No
Hospital Course
Principal Diagnosis:
Expressive aphasia likely due to acute stroke
C4-C5 disc herniation with cord compression noted on MRI
Chronic Diagnoses:�
Essential hypertension
Gastroesophageal reflux disease
Suspect disease stage 3 from likely hypertension
Consultations:�
Neurology
Procedures:�
None
Clinical course:�
This is a 78-year-old male, with past medical history as stated above, who presented with expressive aphasia.
Problem 1:
Expressive aphasia likely due to acute stroke; this has resolved during his hospital stay.
His initial CT head from admission showed no acute intracranial abnormality.
However his follow-up MRI brain noted 2.4 cm acute hemorrhagic infarct in the posterior left parietal lobe.
Acute hemorrhagic stroke was ruled out on subsequent CT head, which confirmed a 2 cm subacute infarct in the posterior left parietal lobe, but no associated hemorrhage is demonstrated.
He can continue with aspirin indefinitely per neurology.
He can also continue with Lipitor 40 mg daily (LDL at 77).
Given he has no residual neurologic deficit, he was recommended to return home without skilled needs per PT OT eval.
Problem 2:
C4-C5 disc herniation with cord compression noted on MRI.
His MRI cervical spine confirmed C4-C5 disc herniation with cord compression.
The patient did not complain of any neck pain, he is asymptomatic.
This was discussed with the neurosurgeon Dr. Fuentes, who recommended outpatient neurosurgery eval.
As for the rest of his medical problems, they were stable during his hospital stay.
Discharge Plan
-
Patient Disposition: Home (Routine Discharge)
Discharge Diagnosis/Procedures: Acute stroke in the posterior LEFT PARIETAL LOBE; Essential hypertension; Incidental finding of C4-C5 disc herniation with cord compression noted on MRI
Condition: Fair
Diet: As tolerated, Low Fat, Low Cholesterol and Low Sodium
Activity: As tolerated
Driving Restrictions: Not until seen by your Dr
Bathing Restrictions: None
Activity Restrictions/Additional Instructions:
Check your blood pressure twice daily. Write those numbers down and follow-up with primary care provider for further medication titration
Follow up with Neurosurgery outpatient for the C4-C5 disc herniation with cord compression noted on MRI
Referrals:
Cayden Leos MD [Active] - in three to four weeks
Sharlene Franco MD [Active] -
Jaiden Barton MD [Family Provider] - in less than 1 week
Additional Discharge Medication Instructions: Continue baby aspirin going forward.
Prescriptions:
New
aspirin 81 mg Tablet,Delayed Release (Dr/Ec)
81 mg PO DAILY Qty: 30 0RF
Continued
atorvastatin 40 mg Tablet
40 mg PO QPM
hydralazine 25 mg Tablet
25 mg PO QPM
Patient Comments:
02/09/2024, prescribed for pt. to take 1 tab TID but pt. takes 1 tab QPM per pt.; last filled on 08/19/2023 for a 90-day supply.
amlodipine 10 mg Tablet
10 mg PO QPM
omeprazole 20 mg Capsule,Delayed Release(Dr/Ec)
20 mg PO NOON
hydrochlorothiazide 25 mg Tablet
25 mg PO NOON
lisinopril 40 mg Tablet
40 mg PO QPM
atenolol 50 mg Tablet
50 mg PO QPM
Discharge Orders:
Discharge Patient (As Directed); Ordered 02/12/24
Ordered By: Rosemary Cruz
Discharge Date and Time
Discharge Date/Time: 02/12/24 12:51
Print Language: CITIZEN OF [place]
== END 2024-02-12 12:51 | disposition home or self-care (01) | DRG 65 ==
LOC: 2 NORTH 13:17
PROVIDERS: Registered Nurse; ADMITTING PHYSICIAN Internal Medicine; ATTENDING PHYSICIAN Internal Medicine; CONSULT PHYSICIAN Psychiatry & Neurology Neurology; EMERGENCY PHYSICIAN Emergency Medicine; FAMILY PHYSICIAN Internal Medicine
DX: I63.9 Cerebral infarction, unspecified (principal); M50.021 Cervical disc disorder at C4-C5 level with myelopathy; G93.89 Other specified disorders of brain; I12.9 Hypertensive chronic kidney disease with stage 1 through stage 4 chronic kidney disease, or unspecified chronic kidney disease; N18.30 Chronic kidney disease, stage 3 unspecified; R47.01 Aphasia; R47.1 Dysarthria and anarthria; K21.9 Gastro-esophageal reflux disease without esophagitis; E78.5 Hyperlipidemia, unspecified; F17.290 Nicotine dependence, other tobacco product, uncomplicated; Z86.73 Personal history of transient ischemic attack (TIA), and cerebral infarction without residual deficits; Z79.899 Other long term (current) drug therapy; Z87.19 Personal history of other diseases of the digestive system
CPT/HCPCS: 70450; 70544; 70548; 70551; 72141; 80048; 80053; 80061; 81003; 83036; 83735; 84484; 85025; 85027; 92523; 92610; 93005; 93306; 97161; 97166; 99285; A9585